=== PATIENT | female | born 1985 | race Caucasian/White ===

== ENCOUNTER 2017-11-22 14:08 | Outpatient (CLI) | payer MEDICARE, MEDICAID ==
--- NOTE | 2017-11-22 16:01 | MRI ---
MR OF THE RIGHT SHOULDER WITHOUT CONTRAST: 11/22/17 INDICATION: 32-year-old female with right shoulder pain. Patient 12 years ago, she was lifting a rock and injured her right shoulder and has had persistent right shoulder pain since this injury. COMPARISON: MR of the right shoulder performed at [facility], 07/10/16. FINDINGS: Motion artifact slightly limits image detail of the examination. There is moderate tendinosis of the supraspinatus. There is a partial thickness low grade articular s urface tear involving the supraspinatus at the footprint measuring 5.6 x 6.6 mm. The biceps tendon is located. Intra-articular biceps tendon appears intact. There is some abnormal T2 signal involving th e superior glenoid labrum suspicious for a type II SLAP tear. This is best seen on image 8 through 12 of series 5. No paralabral cyst is evident. There is no overt extension in biceps anchor. The inferi or glenohumeral labral ligamentous complex appears within normal limits. The visualized glenohumeral joint appears within normal limits. There is mild AC joint hypertrophy. No muscular atrophy is eviden t. No enlarged lymph nodes are evident. No os acromiale is evident. IMPRESSION: 1. Low grade partial thickness articular surface tear at the footprint. Moderate tendinosis supr aspinatus. 2. Type II SLAP tear. 3. Mild AC joint osteoarthrosis. POS: [facility]
== END 2017-11-22 14:09 | disposition home or self-care (01) ==
LOC: SCSMRI 14:08
PROVIDERS: ATTEND Orthopaedic Surgery
DX: M25.511 Pain in right shoulder (principal); R53.1 Weakness; S43.491A Other sprain of right shoulder joint, initial encounter; M19.011 Primary osteoarthritis, right shoulder; M75.81 Other shoulder lesions, right shoulder; S46.811A Strain of other muscles, fascia and tendons at shoulder and upper arm level, right arm, initial encounter